=== PATIENT | male | born 1965 | race Caucasian/White ===

== ENCOUNTER → 2022-12-05 | Outpatient (CLI) | payer MEDICARE | END | disposition home or self-care (01) | LOC: LABWHC1 12:19 | PROVIDERS: ATTEND Psychiatry & Neurology Neurology | DX: Z01.812 Encounter for preprocedural laboratory examination (principal); R00.1 Bradycardia, unspecified | CPT/HCPCS: 36415; 93005 ==

== ENCOUNTER 2024-08-24 21:40 | Inpatient (IN) | payer MEDICARE ==
[2024-08-24] MEDS: SODIUM CHLORIDE 0.9% 1,000 ML IV ONE (22:26)
[2024-08-24 22:30] LABS: Glucose,Whole Blood 114 mg/dL (70-110)
[2024-08-24 22:45] LABS: Lactic Acid, Venous 1.4 mmol/L (0.7-2.0)
[2024-08-24 22:51] LABS: ALT 56 U/L (4-49); AST 188 U/L (17-59); Acetaminophen <10.0 ug/mL; African American GFR (CKD) 24 (>60 ml/min/1.73 sqM); Albumin 4.5 g/dL (3.5-5.0); Alkaline Phosphatase 103 U/L (38-126); Anion Gap 17 mmol/L; Blood Urea Nitrogen 35 mg/dL (9-20); Calcium 9.6 mg/dL (8.4-10.2); Carbon Dioxide 16 mmol/L (22-30); Chloride 102 mmol/L (98-107); Glucose 111 mg/dL (74-99); Non-African American GFR(CKD) 21 (>60 ml/min/1.73 sqM); Potassium 4.6 mmol/L (3.5-5.1); Salicylate <1.0 mg/dL; Sodium 135 mmol/L (137-145); Total Protein 6.9 g/dL (6.3-8.2)
--- NOTE | 2024-08-24 22:52 | CT ---
EXAM: CT Head Without Intravenous Contrast CLINICAL HISTORY: ITS.REASON CT Reason: AMS, poss fall TECHNIQUE: Axial computed tomography images of the head/brain without intravenous contrast. CTDI is 45.2 mGy and DLP is 1100 mGy-cm. This CT exam was performed using one or more of the following dose reduction techniques: automated exposure control, adjustment of the mA and/or kV according to patient size, and/or use of iterative reconstruction technique. COMPARISON: No relevant prior studies available. FINDINGS: No acute intracranial hemorrhage. No midline shift or mass effect. The territorial baeza-white matter differentiation is maintained throughout. The ventricles and sulci are commensurate with age. The visualized orbits appear grossly unremarkable. The calvarium is intact. The visualized paranasal sinuses and mastoid air cells are grossly clear. IMPRESSION: No acute intracranial hemorrhage, midline shift, or mass effect. EXAM: CT Cervical Spine Without Intravenous Contrast CLINICAL HISTORY: ITS.REASON CT Reason: AMS, poss fall TECHNIQUE: Axial computed tomography images of the cervical spine without intravenous contrast. CTDI is 13.3 mGy and DLP is 432.9 mGy-cm. This CT exam was performed using one or more of the following dose reduction techniques: automated exposure control, adjustment of the mA and/or kV according to patient size, and/or use of iterative reconstruction technique. COMPARISON: No relevant prior studies available. FINDINGS: The vertebral body heights are maintained. The craniocervical junction is intact. The atlanto-dens interval is maintained. The dens is intact. ACDF at C4-C7.. The anterior plate is well seated. No CT evidence of hardware complication. There is no spondylolisthesis. Multilevel cervical spondylosis and degenerative disc disease. Straightening of the cervical lordosis. IMPRESSION: 1. No acute fracture or subluxation of the cervical spine. 2. ACDF at C4-C7.. The anterior plate is well seated. No CT evidence of hardware complication.
--- NOTE | 2024-08-24 22:57 | XR ---
EXAM: XR Chest, 1 View CLINICAL HISTORY: ITS.REASON XR Reason: altered mental status, cough TECHNIQUE: Frontal view of the chest. COMPARISON: No relevant prior studies available. FINDINGS: Lungs: The lung bases are not included in the field of view. Pleural space: Unremarkable. No pneumothorax. Heart: Unremarkable. No cardiomegaly. Mediastinum: Unremarkable. Bones/joints: Unremarkable. Other findings: ACDF. IMPRESSION: No acute findings.
--- NOTE | 2024-08-24 23:07 | ED ---
General Adult HPI - General Chief complaint: Altered Mental Status Stated complaint: Stroke Time Seen by Provider: 08/24/24 21:54 Source: patient Mode of arrival: EMS Limitations: altered mental status - History of Present Illness Initial comments: Patient is a 58 y/o gentleman PMH methadone dependance 2/2 chronic pain presenting today for altered mental status. Hx provided by patient's family. Pt's last known well was 10 AM yesterday when, pt's last heard from him via text (she does not live with the pt). His states the pt had been texting her that he wasn't feeling well and had a cough, nausea and vomiting. Pt's became when she didn't hear from him today so asked a neighbor and her son to go check on the pt. When pt's son arrived he found the pt sitting in his recliner, confused, with a cut on his lip and "all of the glass in front of him smashed" like he had tried to get up and couldn't or had possibly fallen. Pt is normally AOx 4. No hx CVA. No hx alcohol abuse. Is not on blood thinners. Did spend a significant amount of time this weekend working outside-pt's family stating pt will continue to work outside in the heat all day without coming in to rest. - Related Data Home Medications Medication Instructions Recorded Confirmed Methadone [Dolophine] 10 mg PO Q4-6H 08/25/24 08/25/24 Allergies Allergy/AdvReac Type Severity Reaction Status Date / Time bupropion [From Wellbutrin] Allergy Unknown Verified 08/24/24 22:23 gabapentin Allergy Unknown Verified 08/24/24 22:23 Review of Systems ROS Statement: Those systems with pertinent positive or pertinent negative responses have been documented in the HPI. ROS Other: All systems not noted in ROS Statement are negative. Limitations: ROS unobtainable due to patients medical condition Past Medical History Past Psychological History: Unable to Obtain Smoking Status: Unknown if ever smoked Past Alcohol Use History: None Reported Past Drug Use History: None Reported General Exam - General Exam Comments Initial Comments: PE: CONSTITUTIONAL: No apparent distress, ill-appearing,nontoxic SKIN: Warm, dry, no jaundice, hives or petechiaem small abrasion to right lip EYES: Pupils are equally round, extraocular movements intact without nystagmus, clear conjunctiva, non-icteric sclera HENT: Normocephalic, atraumatic, no palpable hematomas, dry mucus membranes, oropharynx clear without exudates NECK: , Full range of motion, normal appearance, no midline spinal TTP PULMONARY: Clear to auscultation without wheezes, rhonchi, or rales, normal excursion, no accessory muscle use and no stridor CARDIOVASCULAR: Regular rate, rhythm, normal S1 and S2. No appreciated murmurs, rubs or gallops. Strong radial pulses with intact distal perfusion. No lower extremity edema GASTROINTESTINAL: Soft, active bowel sounds throughout, non-tender, non- distended, no palpable masses, no rebound or guarding. No hepatosplenomegaly MUSCULOSKELETAL: Extremities have no gross deformity, no edema, redness, or swelling. No calf swelling, no midline spinal tenderness palpation NEUROLOGIC:_a/o x1, able to identify , when she asks him who she is, when this examiner asks pt orienting questions pt does not answer any questions, star es blankly at examiner, GCS 14,confused mentation, pt does not speak to this examiner though looks at myself when he is addressed, appears confused, move's all 4 extremities spontaneously, no facial droop, EOM intact, exam is limited by pt's ability to cooperate with exam. Moves all extremities x 4 without motor or sensory deficit PSYCHIATRIC: Unable to assess Limitations: altered mental status Course Vital Signs 08/24/24 08/24/24 08/25/24 21:42 23:07 00:00 Temperature 97.9 F Pulse Rate 85 79 85 Respiratory 18 18 16 Rate Blood Pressure 149/90 135/80 165/90 O2 Sat by Pulse 95 97 95 Oximetry 08/25/24 08/25/24 08/25/24 01:00 02:00 05:09 Temperature Pulse Rate 69 81 72 Respiratory 18 18 16 Rate Blood Pressure 132/81 128/79 148/78 O2 Sat by Pulse 96 97 96 Oximetry 08/25/24 08/25/24 08/25/24 06:00 08:18 08:22 Temperature Pulse Rate 70 64 Respiratory 16 18 Rate Blood Pressure 133/71 O2 Sat by Pulse 96 97 Oximetry 08/25/24 09:36 Temperature Pulse Rate 68 Respiratory 20 Rate Blood Pressure 132/77 O2 Sat by Pulse 98 Oximetry - Reevaluation(s) Reevaluation #1: Notified that patient's creatinine kinase was 24,000, patient has received 1 L IV fluids, ordered 130 cc an hour maintenance fluids, currently pending CMP 08/24/24 23:46 EKG Findings - EKG Comments: EKG Findings:: Sinus rhythm, rate 89 bpm intervals within acceptable limits, no significant ST elevations or depressions no arrhythmia Medical Decision Making - Medical Decision Making Was pt. sent in by a medical professional or institution (, PA, OIL WELL PU[employer]ER, urgent care, hospital, or [facility]...) When possible be specific @ -No Did you speak to anyone other than the patient for history (EMS, parent, family, police, friend...)? 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 Why? @ -I reviewed nursing and triage notes Were old charts reviewed (outside hosp., previous admission, EMS record, old EKG, old radiological studies, urgent care reports/EKG's, [facility] records)? Report findings @ -Medical records reviewed Differential Diagnosis (chest pain, altered mental status, abdominal pain women, abdominal pain men, vaginal bleeding, weakness, fever, dyspnea, syncope, headache, dizziness, GI bleed, back pain, seizure, CVA, palpatations, mental health, musculoskeletal)? @Differential Altered Mental Status: Hypoglycemia, DKA, hypercapnia, ETOH, overdose, CO poisoning, trauma, myxedema coma, HTN encephalopathy, infection, encephalitis, psychosis, intercranial hemorrhage, hepatic encephalopathy, meningitis, CVA, this is not meant to be an all-inclusive list EKG interpreted by me (3pts min.). @ -As above X-rays interpreted by me (1pt min.). @ Personally reviewed chest XR, I see no consolidations CT interpreted by me (1pt min.). @ -Personally reviewed CT brain I see no evidence of hemorrhage or mass effect reads CT C-spine I see no evidence of fracture or malalignment U/S interpreted by me (1pt. min.). @ -None done What testing was considered but not performed or refused? (CT, X-rays, U/S, labs)? Why? 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 Why? @ -None Did you discuss the management of the patient with other professionals (professionals i.e. , PA, OIL WELL PU[employer]ER, lab, RT, psych nurse, social professionals, welt stitch cleaner, teacher, head correction officer, case management rn)? Give summary @ -No Was smoking cessation discussed for >3mins.? @ -No Was critical care preformed (if so, how long)? @Yes 35 minutes Were there social determinants of health that impacted care today? How? (Homelessness, low income, unemployed, alcoholism, drug addiction, transportation, low edu. Level, literacy, decrease access to med. care, [place] [facility], rehab)? @ -No Was there de-escalation of care discussed even if they declined (Discuss DNR or withdrawal of care, Hospice)? @ -No What co-morbidities impacted this encounter? (DM, HTN, Smoking, COPD, CAD, Cancer, CVA, ARF, Chemo, Hep., AIDS, mental health diagnosis, sleep apnea, morbid obesity)? @ -None Was patient admitted / discharged? Hospital course, mention meds given and route, prescriptions, significant lab abnormalities, going to OR and other pertinent info. @ -Admission- Pt is a 58 y/o gentleman presenting for AMS. Arrives via ambulance. On my assessment pt is sitting in bed, staring blankly across the room. He does turn towards me when I say his name however does not answer any questions. He moves all 4 extremities spontaneously. Pt's family arrives at bedside and when his asks him to identify her he states "that's my Kelsey" and is also able to identify his son, but does not answer questions for this examiner. He seems to have difficulty following commands but then does attempt to get up out of bed to greet his family. Pt redirected to bed. Does not appear to have any focal neuro deficits. Only sign of trauma is small abrasion to right lip, otherwise,head atraumatic, no midline spinal TTP, extremities are nontender and atraumatic. Stroke alert was considered however given patient's last known well was greater than 24 hours prior to arrival, patient is outside the window for any type of intervention. Will obtain CT brain and C-spine as well out of concern for possible fall. Patient has a slightly dry mucous membranes. Otherwise physical exam is largely unremarkable. Discussed with patient and family plan for broad workup to assess for cause of altered mental status, to include CT brain, chest x-ray, comprehensive labs such as CMP, CBC, troponin, TSH, ammonia, salicylate and acetaminophen levels, UDS, alcohol, CK, urinalysis. Patient will be given 1 L IV fluids. Patient's family notes concern that patient is uncomfortable secondary to chronic pain as he has not been given his methadone. They are unsure of his dose of methadone and were unable to bring it with them so patient's pain will be controlled with Dilaudid until methadone can be confirmed with pharmacy in the morning. Labs significant for white blood cell count 27.76, due to elevated white blood cell count and patient's noting he seemed recently ill, will begin on broad-spectrum antibiotics, Rocephin azithromycin, additionally blood culture and lactic already ordered. Labs otherwise significant for a CK of 24,102, GFR of 21, previously on 04/17/2022 was 96.5, no known history of CKD, creatinine 3.19, AST/ALT 188/56, troponin 0.163, no elevations or depressions on EKG suspect this is secondary to type II NV. Additionally her IV fluid and maintenance fluids were ordered as patient appears to be in rhabdomyolysis. Bladder scan was obtained and showed 75 cc urine within the bladder. After administration of fluid bolus and maintenance fluids repeat bladder scan showed approximately 130 cc within the bladder. A urine sample was able to be obtained and showed light yellow urine with a large amount of blood again reflective of rhabdomyolysis, negative nitrates leukocyte esterase. On reassessment patient is now more conversant and responding to examiners questions. Stated he still does not remember what caused him to come to the ER last night. Case was discussed with Dr. Devlin, [facility] who kindly accepted patient for admission for rhabdomyolysis. Nephrology consultation placed. Undiagnosed new problem with uncertain prognosis? @ -No Drug Therapy requiring intensive monitoring for toxicity (Heparin, Nitro, Insulin, Cardizem)? @ -No Were any procedures done? @ -No Diagnosis/symptom? @Rhabdomyolysis, ZAK, acute metabolic encephalopathy, elevated troponin Acute, or Chronic, or Acute on Chronic? @Acute Uncomplicated (without systemic symptoms) or Complicated (systemic symptoms)? @Complicated Side effects of treatment? @ -No Exacerbation, Progression, or Severe Exacerbation? @ -No Poses a threat to life or bodily function? How? (Chest pain, USA, NV, pneumonia, PE, COPD, DKA, ARF, appy, cholecystitis, CVA, Diverticulitis, Homicidal, Suicidal, threat to staff... and all critical care pts) @Yes - Lab Data Result diagrams: 08/24/24 21:48 08/24/24 21:48 Lab Results 08/24/24 08/24/24 08/24/24 Range/Units 21:48 21:48 21:48 WBC 27.76 H (4.50-10.00) 10*3/uL RBC 4.86 (4.40-5.60) 10*6/uL Hgb 15.2 (13.0-17.0) g/dL Hct 42.9 (39.6-50.0) % MCV 88.3 (80.0-97.0) fL MCH 31.3 (27.0-32.0) pg MCHC 35.4 (32.0-37.0) g/dL Plt Count 285 (140-440) 10*3/uL MPV 9.1 L (9.5-12.2) fL Immature Gran % (Auto) 0.7 % Neutrophils % 89.9 % Lymphocytes % 2.7 % Monocytes % 6.5 % Eosinophils % 0.0 % Basophils % 0.2 % Immature Gran # 0.20 H (0.00-0.04) 10*3/uL Neutrophils # 24.95 H (1.80-7.70) 10*3/uL Lymphocytes # 0.74 L (0.90-5.00) 10*3/uL Monocytes # 1.81 H (0.20-1.00) 10*3/uL Eosinophils # 0.01 L (0.04-0.35) 10*3/uL Basophils # 0.05 (0.00-0.10) 10*3/uL PT 10.7 (10.0-12.5) sec INR 1.0 (<1.2) APTT 22.2 (22.0-30.0) sec Sodium 135 L (137-145) mmol/L Potassium 4.6 (3.5-5.1) mmol/L Chloride 102 (98-107) mmol/L Carbon Dioxide 16 L (22-30) mmol/L Anion Gap 17 mmol/L BUN 35 H (9-20) mg/dL Creatinine 3.19 H (0.66-1.25) mg/dL Est GFR (CKD-EPI)AfAm 24 (>60 ml/min/1.73 sqM) Est GFR (CKD-EPI)NonAf 21 (>60 ml/min/1.73 sqM) Glucose 111 H (74-99) mg/dL POC Glucose (mg/dL) (70-110) mg/dL POC Glu Security Guard Supervisor ID Plasma Lactic Acid Will (0.7-2.0) mmol/L Calcium 9.6 (8.4-10.2) mg/dL Total Bilirubin 0.5 (0.2-1.3) mg/dL AST 188 H (17-59) U/L ALT 56 H (4-49) U/L Alkaline Phosphatase 103 (38-126) U/L Ammonia (<30) umol/L Creatine Kinase 53485 H* (55-170) U/L Troponin I (0.000-0.034) ng/mL Total Protein 6.9 (6.3-8.2) g/dL Albumin 4.5 (3.5-5.0) g/dL Salicylates <1.0 mg/dL Acetaminophen <10.0 ug/mL Serum Alcohol <10 mg/dL 08/24/24 08/24/24 08/24/24 Range/Units 21:48 21:48 22:28 WBC (4.50-10.00) 10*3/uL RBC (4.40-5.60) 10*6/uL Hgb (13.0-17.0) g/dL Hct (39.6-50.0) % MCV (80.0-97.0) fL MCH (27.0-32.0) pg MCHC (32.0-37.0) g/dL Plt Count (140-440) 10*3/uL MPV (9.5-12.2) fL Immature Gran % (Auto) % Neutrophils % % Lymphocytes % % Monocytes % % Eosinophils % % Basophils % % Immature Gran # (0.00-0.04) 10*3/uL Neutrophils # (1.80-7.70) 10*3/uL Lymphocytes # (0.90-5.00) 10*3/uL Monocytes # (0.20-1.00) 10*3/uL Eosinophils # (0.04-0.35) 10*3/uL Basophils # (0.00-0.10) 10*3/uL PT (10.0-12.5) sec INR (<1.2) APTT (22.0-30.0) sec Sodium (137-145) mmol/L Potassium (3.5-5.1) mmol/L Chloride (98-107) mmol/L Carbon Dioxide (22-30) mmol/L Anion Gap mmol/L BUN (9-20) mg/dL Creatinine (0.66-1.25) mg/dL Est GFR (CKD-EPI)AfAm (>60 ml/min/1.73 sqM) Est GFR (CKD-EPI)NonAf (>60 ml/min/1.73 sqM) Glucose (74-99) mg/dL POC Glucose (mg/dL) 114 H (70-110) mg/dL POC Glu Security Guard Supervisor ID Sheldon Acosta Plasma Lactic Acid Will 1.4 (0.7-2.0) mmol/L Calcium (8.4-10.2) mg/dL Total Bilirubin (0.2-1.3) mg/dL AST (17-59) U/L ALT (4-49) U/L Alkaline Phosphatase (38-126) U/L Ammonia <9 (<30) umol/L Creatine Kinase (55-170) U/L Troponin I 0.163 H* (0.000-0.034) ng/mL Total Protein (6.3-8.2) g/dL Albumin (3.5-5.0) g/dL Salicylates mg/dL Acetaminophen ug/mL Serum Alcohol mg/dL Disposition Clinical Impression: Rhabdomyolysis, ZAK (acute kidney injury), Acute metabolic encephalopathy Disposition: ADMITTED IP TO THIS HOSP Condition: Stable
[2024-08-24] MEDS: ONDANSETRON 4 MG/2 ML VIAL IVP STA (23:09)
[2024-08-24] MEDS: MORPHINE SULFATE 4 MG/ML SYRINGE IVP STA (23:09)
[2024-08-24 23:21] LABS: INR 1.0 (<1.2); Partial Thromboplastin Time 22.2 sec (22.0-30.0); Prothrombin Time 10.7 sec (10.0-12.5)
[2024-08-24 23:22] LABS: Basophils # (A) 0.05 10*3/uL (0.00-0.10); Basophils % (A) 0.2 %; Eosinophils # (A) 0.01 10*3/uL (0.04-0.35); Eosinophils % (A) 0.0 %; HCT 42.9 % (39.6-50.0); HGB 15.2 g/dL (13.0-17.0); Lymphocytes # (A) 0.74 10*3/uL (0.90-5.00); Lymphocytes % (A) 2.7 %; MCH 31.3 pg (27.0-32.0); MCHC 35.4 g/dL (32.0-37.0); MCV 88.3 fL (80.0-97.0); Monocytes # (A) 1.81 10*3/uL (0.20-1.00); Monocytes % (A) 6.5 %; Neutrophils # (A) 24.95 10*3/uL (1.80-7.70); Neutrophils % (A) 89.9 %; Platelet Count 285 10*3/uL (140-440); RBC 4.86 10*6/uL (4.40-5.60); RDW 13.0 % (11.5-14.5); WBC 27.76 10*3/uL (4.50-10.00)
[2024-08-24 23:45] LABS: Creatine Kinase 24102 U/L (55-170)
[2024-08-24] MEDS: AZITHROMYCIN 500 MG in SODIUM CHLORIDE 0.9% 250 ML IVPB STA (23:46)
[2024-08-25] MEDS: SODIUM CHLORIDE 0.9% 1,000 ML IV ONE (00:15)
[2024-08-25] MEDS ORDERED: CALCIUM CARBONATE 500 MG CHEWABLE PO PRN (00:22)
[2024-08-25] MEDS ORDERED: MAG HYDROX/AL HYDROX/SIMETH 30 ML CUP PO PRN (00:22)
[2024-08-25] MEDS ORDERED: ONDANSETRON 4 MG/2 ML VIAL IVP PRN (00:22)
[2024-08-25] MEDS ORDERED: NALOXONE 0.4 MG/ML 1 ML VIAL IV PRN (00:22)
[2024-08-25] MEDS ORDERED: ALPRAZolam 0.25 MG TAB PO PRN (00:22)
[2024-08-25] MEDS: SODIUM CHLORIDE 0.9% 1,000 ML IV SCH (01:06)
[2024-08-25] MEDS: HYDROmorphone 0.5 MG/0.5 ML SYRINGE IVP PRN (02:19)
[2024-08-25 05:05] LABS: RSV Not Detected (Not Detectd)
[2024-08-25 07:13] LABS: Amorphous Sediment,Urine Rare /hpf; Bacteria,Urine Occasional /hpf; Bilirubin,Urine Negative (Negative); Blood,Urine Large (Negative); Budding Yeast,Urine Occasional /hpf; Calcium Oxalate Crystals,Urine Few /hpf; Color,Urine Light Yellow; Glucose,Urine (UA) 1+ (Negative); Hyaline Casts,Urine 15 /lpf (0-2); Ketones,Urine Negative (Negative); Leukocyte Esterase,Urine Negative (Negative); Mucus,Urine Rare /hpf; Nitrite,Urine Negative (Negative); PH, Urine 6.0 (5.0-8.0); Protein,Urine 2+ (Negative); RBC,Urine 3 /hpf (0-5); Specific Gravity,Urine 1.012 (1.001-1.035); Squamous Epithelial Cell,Urine 1 /hpf (0-4); Urobilinogen,Urine <2.0 mg/dL (<2.0); WBC,Urine 10 /hpf (0-5)
[2024-08-25 07:15] LABS: Barbiturate Screen,Urine Not Detected (NotDetected); Benzodiazepines Screen,Urine Detected (NotDetected); Opiate Screen,Urine Detected (NotDetected); Oxycodone Screen, Urine Not Detected (NotDetected); Phencyclidine Screen,Urine Not Detected (NotDetected); Tricyclic Antidepressant,Urine Not Detected (NotDetected); Urn Cannabinoid Scrn Detected (NotDetected)
[2024-08-25] MEDS: ENOXAPARIN 30 MG/0.3 ML SYRINGE SQ SCH (08:19)
[2024-08-25] MEDS: HYDROmorphone 1 MG/ML 1 ML SYRINGE IVP PRN (09:31)
[2024-08-25] MEDS: FAMOTIDINE 20 MG TAB PO SCH (09:31)
[2024-08-25 12:58] LABS: African American GFR (CKD) 18 (>60 ml/min/1.73 sqM); Anion Gap 14 mmol/L; Blood Urea Nitrogen 41 mg/dL (9-20); Calcium 8.4 mg/dL (8.4-10.2); Carbon Dioxide 13 mmol/L (22-30); Chloride 109 mmol/L (98-107); Glucose 91 mg/dL (74-99); Non-African American GFR(CKD) 15 (>60 ml/min/1.73 sqM); Potassium 4.7 mmol/L (3.5-5.1); Sodium 136 mmol/L (137-145)
--- NOTE | 2024-08-25 13:17 | P.NPCON ---
History of Present Illness - Reason for Consult Consult date: 08/25/24 acute renal failure - History of Present Illness Mr. Bryant is a 58-year-old male consulted for ZAK. He has a past medical history of methadone dependence secondary to chronic pain who was admitted for altered mental status. at bedside said that he has been has been confused for the past 2 days but has improved since admission. Patient complained of a possible chest infection since Thursday, experiencing dry heaves and cough. He took previously prescribed antibiotics, thinks it was Cipro, for what he thought was a chest infection. His son found him naked and confused on Thursday night around 7 or 8 PM in a chair, although they believe he fell on the floor. The glass table and glass crystals were found broken near him. Unknown downtime. Today he has no complaints of a his suspected chest infection. He denies abdominal pain, chest pain, shortness of breath. He does not remember if he has been urinating, drinking or eating. He complains of lower extremity muscle weakness and pain. He also has been having nausea. On admission his creatinine was 3.19. Previous Creatinine 0.9 on 04/17/22. Cre atine kinase was 24,102 on admission today it is 24,825. UA has large amount of blood, 2+ protein, hyaline casts. Denies NSAID use. No history of blood thinners. No history of malignancy. No family history or prior history of kidney disorders. No hypotension noted. No vomitting or diarrhea. Patient voided this morning. Past Medical History Past Psychological History: Unable to Obtain Smoking Status: Unknown if ever smoked Past Alcohol Use History: None Reported Past Drug Use History: None Reported Medications and Allergies Home Medications Medication Instructions Recorded Confirmed Type Methadone [Dolophine] 10 mg PO Q4-6H 08/25/24 08/25/24 History Allergies Allergy/AdvReac Type Severity Reaction Status Date / Time bupropion [From Wellbutrin] Allergy Unknown Verified 08/24/24 22:23 gabapentin Allergy Unknown Verified 08/24/24 22:23 Physical Exam Vitals: Vital Signs Temp Pulse Resp BP Pulse Ox 08/25/24 09:36 68 20 132/77 98 08/25/24 08:22 64 18 08/25/24 08:18 97 08/25/24 06:00 70 16 133/71 96 08/25/24 05:09 72 16 148/78 96 08/25/24 02:00 81 18 128/79 97 08/25/24 01:00 69 18 132/81 96 08/25/24 00:00 85 16 165/90 95 08/24/24 23:07 79 18 135/80 97 08/24/24 21:42 97.9 F 85 18 149/90 95 Intake and Output 08/24/24 08/25/24 08/25/24 22:59 06:59 14:59 Other: Weight 86.183 kg Vital signs stable General: No acute distress. HEENT: Head exam is unremarkable. LUNGS: No audible rhonchi or wheezes. HEART: Normal S1 and S2 heart sounds ABDOMEN: Nontender.. EXTREMITITES: no edema. Some excoriations noted bilaterally in lower extremities. Results - Lab Results Most recent lab results Calcium 9.6 mg/dL (8.4-10.2) 08/24/24 21:48 08/26/24 06:36 08/26/24 06:36 Assessment and Plan Assessment: 1. Acute kidney injury secondary to rhabdomyolysis [place] [address], [place] [address]. Creatinine on admission 3.19. UA with 2+ protein, large blood, and hyaline casts. Check renal US if renal function does not improve with hydration. 2. Altered mentation. Drug screen positive for opiates, methadone, benzodiazepines [not prescribed], and marijuana. 3. High anion gap metabolic acidosis secondary to acute kidney injury. 4. Rhabdomyolysis with UA showing 3 RBCs and large blood, which is consistent with diagnosis. Plan: Continue IV fluids Check BMP Stat Start bicarbonate drip based on labs Avoid nephrotoxins Monitor I's and O's Repeat labs in AM Thank you for the consultation, we will continue to monitor him throughout his hospital stay. Salvador Ruiz MD Internal medicine, PGY 1 Nephrology service Agree with resident's findings, assessment and plan. Patient is seen and examined.
--- NOTE | 2024-08-25 14:35 | P.HPIM ---
History of Present Illness H&P Date: 08/25/24 Chief Complaint: Altered mental status History of present illness; 58-year-old male with history of substance abuse currently on methadone presents with altered mental status. Patient is a poor historian, most of history obtained from ER notes and ER nurse. Reported that patient was working outside for the last couple of days and thought to have fallen at home, when he was found by EMS there was a shelf that was broken next to him. Patient reports he has no memory of the last 2 days, only remembers working outside a few days ago but outside of that has very little memory of anything else. Labs: WBC 27.76, hemoglobin 15.2, platelets 285, neutrophil 24.95, PT 10.7, INR 1, sodium 135, potassium 4.6, bicarb 16, BUN 35, creatinine 3.19, glucose 111, AST 188, ALT 56, creatinine kinase 24,102, troponin 0.163. UA significant for 2+ protein, 1+ glucose, large amount of blood, 10 WBC, few calcium oxalate crystal, 15 hyaline casts, negative urine leukocyte esterase. Imaging: - EKG done in the ER showed heart rate of 89 bpm, sinus rhythm, and QTc 397. - ER CXR: No acute cardiopulmonary process - ER CT Head: No acute intracranial process - ER CT cervical spine: No acute fracture or subluxation of the cervical spine, ACDF at C4-C7 REVIEW OF SYSTEMS: As stated above in HPI. The rest of the 14-point review of systems is negative. PHYSICAL EXAMINATION: GENERAL: The patient is alert and oriented x2 he is able to state his name date of but believes it is the year 2019, not in any acute distress. Well developed, well nourished. HEENT: Pupils are round and equally reacting to light. EOMI. No scleral icterus. No conjunctival pallor. Normocephalic, atraumatic. CARDIOVASCULAR: S1 and S2 present. No murmurs, rubs, or gallops. PULMONARY: Chest is clear to auscultation b/l, no wheezing or crackles. ABDOMEN: Soft, nontender, nondistended, normoactive bowel sounds. No palpable organomegaly. MUSCULOSKELETAL: No joint swelling or deformity. EXTREMITIES: No cyanosis, clubbing, or pedal edema. NEUROLOGICAL: Gross neurological examination did not reveal any focal deficits. SKIN: No rashes. Assessment and Plan #Rhabdomyolysis #ZAK likely secondary to rhabdo and dehydration #AMS - CK slightly elevated from admission - Continue NS at 130 cc/h - Nephrology consulted, appreciate further recommendations - Avoid nephrotoxic agents - Discontinue Lovenox, start heparin 5000 SQ 3 times daily - Per nephrology will consider bicarb drip if it continues to be low and follow ing BMP - Monitor BMP - After speaking with , this is far from the patient's baseline mentation we will continue to monitor likely secondary to ZAK and dehydration #Elevated troponin: - Likely secondary to ZAK - Repeat troponin pending - Continue to monitor #Leukocytosis: Potentially reactive - Blood cultures drawn - Given 1 dose of Rocephin and Zithromax in the ER - No fevers since admission - No plans for continued antibiotics, will continue to monitor F: NS 130 cc/h E: None N: Renal diet DVT ppx: Heparin 5000 SQ 3 times daily GI ppx: Calcium carbonate CODE STATUS: Full code Dispo: Pending medical course Moni Palacio MD PGY-2 FM Dictation was produced using [employer] dictation software. please excuse any grammatical, word or spelling errors. Past Medical History Past Psychological History: Unable to Obtain Smoking Status: Unknown if ever smoked Past Alcohol Use History: None Reported Past Drug Use History: None Reported Medications and Allergies Home Medications Medication Instructions Recorded Confirmed Type Methadone [Dolophine] 10 mg PO Q4-6H 08/25/24 08/25/24 History Allergies Allergy/AdvReac Type Severity Reaction Status Date / Time bupropion [From Wellbutrin] Allergy Unknown Verified 08/24/24 22:23 gabapentin Allergy Unknown Verified 08/24/24 22:23 Physical Exam Vitals: Vital Signs Temp Pulse Resp BP Pulse Ox 08/25/24 06:00 70 16 133/71 96 08/25/24 05:09 72 16 148/78 96 08/25/24 02:00 81 18 128/79 97 08/25/24 01:00 69 18 132/81 96 08/25/24 00:00 85 16 165/90 95 08/24/24 23:07 79 18 135/80 97 08/24/24 21:42 97.9 F 85 18 149/90 95 Intake and Output 08/24/24 08/25/24 08/25/24 22:59 06:59 14:59 Other: Weight 86.183 kg Results CBC & Chem 7: 08/24/24 21:48 08/25/24 07:41 Labs: Abnormal Lab Results - Last 24 Hours (Table) 08/24/24 08/24/24 08/24/24 Range/Units 21:48 21:48 21:48 WBC 27.76 H (4.50-10.00) 10*3/uL MPV 9.1 L (9.5-12.2) fL Immature Gran # 0.20 H (0.00-0.04) 10*3/uL Neutrophils # 24.95 H (1.80-7.70) 10*3/uL Lymphocytes # 0.74 L (0.90-5.00) 10*3/uL Monocytes # 1.81 H (0.20-1.00) 10*3/uL Eosinophils # 0.01 L (0.04-0.35) 10*3/uL Sodium 135 L (137-145) mmol/L Carbon Dioxide 16 L (22-30) mmol/L BUN 35 H (9-20) mg/dL Creatinine 3.19 H (0.66-1.25) mg/dL Glucose 111 H (74-99) mg/dL POC Glucose (mg/dL) (70-110) mg/dL AST 188 H (17-59) U/L ALT 56 H (4-49) U/L Creatine Kinase 08043 H* (55-170) U/L Troponin I 0.163 H* (0.000-0.034) ng/mL Urine Protein (Negative) Urine Glucose (UA) (Negative) Urine Blood (Negative) Urine WBC (0-5) /hpf Calcium Oxalate Crystal (None) /hpf Amorphous Sediment (None) /hpf Urine Bacteria (None) /hpf Hyaline Casts (0-2) /lpf Urine Mucus (None) /hpf Urine Yeast (Budding) (None) /hpf Urine Opiates Screen (NotDetected) Urine Methadone Screen (NotDetected) U Benzodiazepines Scrn (NotDetected) U Marijuana (THC) Screen (NotDetected) 08/24/24 08/25/24 Range/Units 22:28 06:27 WBC (4.50-10.00) 10*3/uL MPV (9.5-12.2) fL Immature Gran # (0.00-0.04) 10*3/uL Neutrophils # (1.80-7.70) 10*3/uL Lymphocytes # (0.90-5.00) 10*3/uL Monocytes # (0.20-1.00) 10*3/uL Eosinophils # (0.04-0.35) 10*3/uL Sodium (137-145) mmol/L Carbon Dioxide (22-30) mmol/L BUN (9-20) mg/dL Creatinine (0.66-1.25) mg/dL Glucose (74-99) mg/dL POC Glucose (mg/dL) 114 H (70-110) mg/dL AST (17-59) U/L ALT (4-49) U/L Creatine Kinase (55-170) U/L Troponin I (0.000-0.034) ng/mL Urine Protein 2+ H (Negative) Urine Glucose (UA) 1+ H (Negative) Urine Blood Large H (Negative) Urine WBC 10 H (0-5) /hpf Calcium Oxalate Crystal Few H (None) /hpf Amorphous Sediment Rare H (None) /hpf Urine Bacteria Occasional H (None) /hpf Hyaline Casts 15 H (0-2) /lpf Urine Mucus Rare H (None) /hpf Urine Yeast (Budding) Occasional H (None) /hpf Urine Opiates Screen Detected H (NotDetected) Urine Methadone Screen Detected H (NotDetected) U Benzodiazepines Scrn Detected H (NotDetected) U Marijuana (THC) Screen Detected H (NotDetected)
[2024-08-25] MEDS: HEPARIN SODIUM,PORCINE 5,000 UNIT/ML 1 ML VIAL SQ SCH (16:55)
[2024-08-25] MEDS: DEXTROSE 5% IN WATER 1,000 ML with SODIUM BICARB (1 MEQ/ML) 150 ML IV SCH (20:12)
[2024-08-25] MEDS: NICOTINE 14MG/24HR PATCH TRANSDERM SCH (21:54)
[2024-08-26 07:28] LABS: Basophils # (A) 0.05 10*3/uL (0.00-0.10); Basophils % (A) 0.4 %; Eosinophils # (A) 0.03 10*3/uL (0.04-0.35); Eosinophils % (A) 0.2 %; HCT 36.5 % (39.6-50.0); HGB 12.6 g/dL (13.0-17.0); Lymphocytes # (A) 1.43 10*3/uL (0.90-5.00); Lymphocytes % (A) 10.6 %; MCH 31.0 pg (27.0-32.0); MCHC 34.5 g/dL (32.0-37.0); MCV 89.7 fL (80.0-97.0); Monocytes # (A) 1.05 10*3/uL (0.20-1.00); Monocytes % (A) 7.8 %; Neutrophils # (A) 10.85 10*3/uL (1.80-7.70); Neutrophils % (A) 80.7 %; Platelet Count 194 10*3/uL (140-440); RBC 4.07 10*6/uL (4.40-5.60); RDW 13.2 % (11.5-14.5); WBC 13.45 10*3/uL (4.50-10.00)
[2024-08-26 07:48] LABS: ALT 74 U/L (4-49); AST 181 U/L (17-59); African American GFR (CKD) 14 (>60 ml/min/1.73 sqM); Albumin 3.0 g/dL (3.5-5.0); Alkaline Phosphatase 74 U/L (38-126); Anion Gap 9 mmol/L; Blood Urea Nitrogen 50 mg/dL (9-20); Calcium 8.1 mg/dL (8.4-10.2); Carbon Dioxide 19 mmol/L (22-30); Chloride 108 mmol/L (98-107); Glucose 92 mg/dL (74-99); Non-African American GFR(CKD) 12 (>60 ml/min/1.73 sqM); Potassium 4.1 mmol/L (3.5-5.1); Sodium 136 mmol/L (137-145); Total Protein 5.2 g/dL (6.3-8.2)
--- NOTE | 2024-08-26 11:01 | US ---
EXAMINATION TYPE: US kidneys/renal and bladder DATE OF EXAM: 08/26/2024 COMPARISON: NONE CLINICAL INDICATION: Male, 58 years old with history of zak; ZAK TECHNIQUE: Grayscale imaging of the bilateral kidneys and urinary bladder: FINDINGS: EXAM MEASUREMENTS: Right Kidney: 12 x 5.4 x 4.7 cm Left Kidney: 11.6 x 6.1 x 4.9 cm Right Kidney: No hydronephrosis or masses seen Left Kidney: No hydronephrosis or masses seen Bladder: Not full There is no evidence for hydronephrosis at this point in time. No nephrolithiasis is seen. No tamara s are identified. The urinary bladder is anechoic. IMPRESSION: No evidence for acute process. [facility], , 08/26/2024 10:59 AM
[2024-08-26] MEDS: DEXTROSE 5% IN WATER 1,000 ML with SODIUM BICARB (1 MEQ/ML) 150 ML IV SCH (11:11)
--- NOTE | 2024-08-26 14:27 | P.PN ---
Subjective History of present illness; 58-year-old male with history of substance abuse currently on methadone presents with altered mental status. Patient is a poor historian, most of history obtained from ER notes and ER nurse. Reported that patient was working outside for the last couple of days and thought to have fallen at home, when he was found by EMS there was a shelf that was broken next to him. Patient reports he has no memory of the last 2 days, only remembers working outside a few days ago but outside of that has very little memory of an ything else. Subjective: 08/26/24: Patient seen at bedside. No significant overnight events. Patient is aware of his name date of and location, still believes the year is 2005. Otherwise no other complaints at this time. States he is feeling better than yesterday. Pertinent positives and negatives discussed above, a complete review of systems was preformed and all the other sytems were negative. Vitals Signs Reveiwed. General: non toxic, no distress, appears at stated age, normal weight Derm: no unusual rashes/lesions, warm Head: atraumatic, normocephalic, symmetric Eyes: EOMI, no lid lag, anicteric sclera, pupils equal round reactive to light ENT: Nose and ears atraumatic Neck: No cervical lymphadenopathy, trachea midline, supple Mouth: no lip lesion, mucus membranes moist Cardiovascular: S1S2 reg, no murmur, positive dorsalis pedis pulse bilateral, no edema Lungs: Decreased air entry bilaterally, no rhonchi, no rales, no accessory muscle use Abdominal: soft, nontender to palpation, no guarding Ext: muscle strength 5 out of 5 in all 4 extremities grossly, no gross muscle atrophy, no contractures, Neuro: CN II-XI grossly intact, no gross focal neuro deficits Psych: Patient is improved from yesterday, is able to understand where he is his name and his date of , still believes the year is 2005. Data Reveiwed Today: Patient Labs: WBC 13.45, hemoglobin 12.6, platelets 194, neutrophil 10.5, sodium 136, potassium 4.1, bicarb 19, BUN 50, creatinine 4.94, calcium 8.1, AST 181, ALT 74, CK20 2911, troponin 0.074. Imaging: Abdomen/bladder ultrasound significant for no evidence for acute process, no hydronephrosis or masses seen in the right or left kidney, bladder not full Assessment and Plan #Rhabdomyolysis #ZAK likely secondary to rhabdo and dehydration #AMS -CK started to trend down, creatinine continues to increase, continue to monitor - Likely in the oligoanuric stage of ATN, will continue to monitor - Strict I's and O's - Abdomen/bladder ultrasound showed no evidence for hydronephrosis and bladder scan showed no evidence of retention - Continue NS at 130 cc/h - Nephrology consulted, appreciate further recommendations - Avoid nephrotoxic agents - Per nephrology will consider bicarb drip if it continues to be low and following BMP - Monitor BMP -Patient's mentation slightly better, still believes the year is 2005 which is the only abnormality in terms of mentation #Elevated troponin: - Likely secondary to ZAK - Repeat troponin pending - Continue to monitor #Leukocytosis: Potentially reactive - White count significantly dropped, further evidence this is likely reactive and not necessarily sign of an infection -Preliminary has been negative for blood culture - Given 1 dose of Rocephin and Zithromax in the ER - No fevers since admission - No plans for continued antibiotics, will continue to monitor F: NS 130 cc/h E: None N: Renal diet DVT ppx: Heparin 5000 SQ 3 times daily GI ppx: Calcium carbonate CODE STATUS: Full code Dispo: Pending medical course Moni Palacio MD PGY-2 FM Dictation was produced using [employer] dictation software. please excuse any grammatical, word or spelling errors. Anticipated discharge place: To home Anticipated discharge time: Pending clinical course Objective - Vital Signs Vital signs: Vital Signs Temp 98.2 F 08/26/24 08:06 Pulse 61 08/26/24 11:50 Resp 15 08/26/24 11:50 BP 153/80 08/26/24 11:50 Pulse Ox 97 08/26/24 11:50 FiO2 Intake & Output 08/25/24 08/26/24 08/26/24 18:59 06:59 18:59 Intake Total 340 Output Total 600 Balance -260 Weight 86.183 kg 81.6 kg Intake: Oral 340 Output: Urine 600 Other: Voiding Method Toilet Toilet Urinal Urinal # Voids 2 1 # Bowel Movements 1 - Labs CBC & Chem 7: 08/26/24 06:36 07/11/25 06:36 Labs: Abnormal Lab Results - Last 24 Hours (Table) 08/25/24 08/26/24 08/26/24 Range/Units 07:41 06:36 06:36 WBC 13.45 H (4.50-10.00) 10*3/uL RBC 4.07 L (4.40-5.60) 10*6/uL Hgb 12.6 L (13.0-17.0) g/dL Hct 36.5 L (39.6-50.0) % MPV 9.2 L (9.5-12.2) fL Neutrophils # 10.85 H (1.80-7.70) 10*3/uL Monocytes # 1.05 H (0.20-1.00) 10*3/uL Eosinophils # 0.03 L (0.04-0.35) 10*3/uL Sodium 136 L 136 L (137-145) mmol/L Chloride 109 H 108 H (98-107) mmol/L Carbon Dioxide 13 L 19 L (22-30) mmol/L BUN 41 H 50 H (9-20) mg/dL Creatinine 4.09 H 4.94 H (0.66-1.25) mg/dL Calcium 8.1 L (8.4-10.2) mg/dL AST 181 H (17-59) U/L ALT 74 H (4-49) U/L Creatine Kinase (55-170) U/L Troponin I (0.000-0.034) ng/mL Total Protein 5.2 L (6.3-8.2) g/dL Albumin 3.0 L (3.5-5.0) g/dL 08/26/24 08/26/24 Range/Units 07:52 07:52 WBC (4.50-10.00) 10*3/uL RBC (4.40-5.60) 10*6/uL Hgb (13.0-17.0) g/dL Hct (39.6-50.0) % MPV (9.5-12.2) fL Neutrophils # (1.80-7.70) 10*3/uL Monocytes # (0.20-1.00) 10*3/uL Eosinophils # (0.04-0.35) 10*3/uL Sodium (137-145) mmol/L Chloride (98-107) mmol/L Carbon Dioxide (22-30) mmol/L BUN (9-20) mg/dL Creatinine (0.66-1.25) mg/dL Calcium (8.4-10.2) mg/dL AST (17-59) U/L ALT (4-49) U/L Creatine Kinase 06907 H* (55-170) U/L Troponin I 0.074 H* (0.000-0.034) ng/mL Total Protein (6.3-8.2) g/dL Albumin (3.5-5.0) g/dL Microbiology - Last 24 Hours (Table) 08/24/24 22:49 Blood Culture - Preliminary Blood
[2024-08-26] MEDS: ACETAMINOPHEN TAB 325 MG TAB PO PRN (15:03)
--- NOTE | 2024-08-26 16:04 | P.PN ---
Subjective Patient is seen for follow-up for acute kidney injury. Acute complaints today. Overall feeling better. Renal function has worsened with serum creatinine increased to 4.9 mg/dL No urine retention [place]aintained [place] [address] Objective - Vital Signs Vital signs: Vital Signs Temp 98.2 F 08/26/24 08:06 Pulse 55 L 08/26/24 15:09 Resp 15 08/26/24 15:09 BP 152/74 08/26/24 15:09 Pulse Ox 97 08/26/24 15:09 FiO2 Intake & Output 08/25/24 08/26/24 08/26/24 18:59 06:59 18:59 Intake Total 580 Output Total 1000 Balance -420 Weight 86.183 kg 81.6 kg Intake: Oral 580 Output: Urine 1000 Other: Voiding Method Toilet Toilet Urinal Urinal # Voids 2 1 # Bowel Movements 1 - Exam Patient is awake, comfortable, no acute distress Alert oriented x 3 Examination of the heart S1 and S2 Examination of the lungs bilateral breath sounds are heard Abdomen is soft nontender Examination of lower extremities showed no evidence of edema DIETARY AIDE exam grossly intact - Labs CBC & Chem 7: 08/26/24 06:36 08/26/24 06:36 Labs: Abnormal Lab Results - Last 24 Hours (Table) 08/26/24 08/26/24 08/26/24 Range/Units 06:36 06:36 07:52 WBC 13.45 H (4.50-10.00) 10*3/uL RBC 4.07 L (4.40-5.60) 10*6/uL Hgb 12.6 L (13.0-17.0) g/dL Hct 36.5 L (39.6-50.0) % MPV 9.2 L (9.5-12.2) fL Neutrophils # 10.85 H (1.80-7.70) 10*3/uL Monocytes # 1.05 H (0.20-1.00) 10*3/uL Eosinophils # 0.03 L (0.04-0.35) 10*3/uL Sodium 136 L (137-145) mmol/L Chloride 108 H (98-107) mmol/L Carbon Dioxide 19 L (22-30) mmol/L BUN 50 H (9-20) mg/dL Creatinine 4.94 H (0.66-1.25) mg/dL Calcium 8.1 L (8.4-10.2) mg/dL AST 181 H (17-59) U/L ALT 74 H (4-49) U/L Creatine Kinase (55-170) U/L Troponin I 0.074 H* (0.000-0.034) ng/mL Total Protein 5.2 L (6.3-8.2) g/dL Albumin 3.0 L (3.5-5.0) g/dL 08/26/24 Range/Units 07:52 WBC (4.50-10.00) 10*3/uL RBC (4.40-5.60) 10*6/uL Hgb (13.0-17.0) g/dL Hct (39.6-50.0) % MPV (9.5-12.2) fL Neutrophils # (1.80-7.70) 10*3/uL Monocytes # (0.20-1.00) 10*3/uL Eosinophils # (0.04-0.35) 10*3/uL Sodium (137-145) mmol/L Chloride (98-107) mmol/L Carbon Dioxide (22-30) mmol/L BUN (9-20) mg/dL Creatinine (0.66-1.25) mg/dL Calcium (8.4-10.2) mg/dL AST (17-59) U/L ALT (4-49) U/L Creatine Kinase 87209 H* (55-170) U/L Troponin I (0.000-0.034) ng/mL Total Protein (6.3-8.2) g/dL Albumin (3.5-5.0) g/dL Microbiology - Last 24 Hours (Table) 08/24/24 22:49 Blood Culture - Preliminary Blood Assessment and Plan Assessment: 1. Acute kidney injury secondary to rhabdomyolysis [place] [address], [place] [address]. Creatinine on admission 3.19 and increased to 4.9 today.. UA with 2+ protein, large blood, and hyaline casts. 2. Altered mentation. Drug screen positive for opiates, methadone, benzodiazepines [not prescribed], and marijuana. 3. Anion gap metabolic acidosis secondary to acute kidney injury currently on bicarb drip. 4. Rhabdomyolysis maintained on IV fluids Plan: Check ultrasound of the kidneys Continue with bicarb drip. Increase rate to 150 cc an hour Repeat labs in a.m. Continue to avoid nephrotoxic agents COLBY La
--- NOTE | 2024-08-26 16:11 | CDI ---
Documentation Clarification Form Date: 08/26/2024 03:15:52 PM From: Suzi Chavez RN, CCDS Phone: [phone] Admit Date: 08/25/2024 12:22:00 AM Patient Name: Josemanuel Vazquez Visit Number: [id number] Discharge Date: ATTENTION: The Clinical Documentation Specialists (CDI) and [facility] Coding Staff appreciate your assistance in clarifying documentation. Please respond to the clarification below the line at the bottom and electronically sign. The CDI & [facility] Coding staff will review the response and follow-up if needed. Please note: Queries are made part of the Legal Health Record. If you have any questions, please contact the author of this message via ITS. Doctor. Jadon Lynnette Rhabdomyolysis is documented in the Internal medicine H/P and subsequent progress notes. Additional clarification regarding the type of rhabdomyolysis is requested. History/Risk Factors: Poly substance abuse, Clinical Indicators: 58-year-old male present with altered mental status. Reported that patient was working outside for last couple of days and thought to have fallen at home. Patient reports he has no memory of the last 2 days 08/25 VS (02:00) 128/79 81 18 97% RA Labs: 08/25 WBC 27.76, PLT 285, Neutrophil 24.95, PT 10.7, INR 1, Bicarb 16 , BUN 35, Cr 3.19 Creatine kinase 24,102, Troponin 0.163 08/25 UA: significant for 2+ protein, 1+ glucose, large amount of blood, 10 WBC, few calcium oxalate crystal, 15 hyaline casts, negative urine leukocyte esterase. 08/25 Urine Drug Screen: Opiate -Detected, Methadone -Detected, Benzodiazepines- Detected, Marijuana -Detected Treatment: .9NS @ 130 ML/HR 08/24-08/26 Monitor CK, Labs 08/26, 08/27 D5/H20 NaBicarb 150 ml 1,150 MLS @ 150MLS/HR08/26-08/26 Please clarify the type of rhabdomyolysis, if known: [ ] Traumatic rhabdomyolysis due to fall [x ] Traumatic rhabdomyolysis due to prolonged immobility [ ] Non traumatic rhabdomyolysis due to medication (please specify) [ ] Other, please specify [ ] Unable to Determine (Template Last Revised: April 2020) MTDD
--- NOTE | 2024-08-26 16:52 | CDI ---
Documentation Clarification Form Date: 08/26/2024 04:15:00 PM From: Suzi Chavez RN, CCDS Phone: [phone] Admit Date: 08/25/2024 12:22:00 AM Patient Name: Josemanuel Vazquez Visit Number: [id number] Discharge Date: ATTENTION: The Clinical Documentation Specialists (CDI) and [facility] Coding Staff appreciate your assistance in clarifying documentation. Please respond to the clarification below the line at the bottom and electronically sign. The CDI & [facility] Coding staff will review the response and follow-up if needed. Please note: Queries are made part of the Legal Health Record. If you have any questions, please contact the author of this message via ITS. Doctor. Jadon Church Your patient has the documented symptom of Altered Mental Status Internal medicine H/P and subsequent progress notes.. Additional clarification regarding the etiology/cause of this symptom is requested. History/Risk Factors: Substance abuse, Clinical Indicators: 58-year-old male present with altered mental status. Reported that patient was working outside for last couple of days and thought to have fallen at home. Patient reports he has no memory of the last 2 days. In ER he was A/O X1. 08/25 VS (02:00) 128/79 81 18 97% RA Labs: 08/25 WBC 27.76, PLT 285, Neutrophil 24.95, PT 10.7, INR 1, Bicarb 16 , BUN 35, Cr 3.19 Creatine kinase 24,102, Troponin 0.163 08/25 Urine Drug Screen: Opiate -Detected, Methadone -Detected, Benzodiazepines- Detected, Marijuana -Detected 08/24 CT Brain: No acute intracranial hemorrhage, midline shift, or mass effect 08/24 ED Note: Clinical Impression: Acute metabolic encephalopathy Treatment: .9NS @ 130 ML/HR 08/24-08/26 Monitor CK, Labs 08/26, 08/27 D5/H20 NaBicarb 150 ml 1,150 MLS @ 150MLS/HR08/26-08/26 Neuro assessment/physical assessment q 6 Hrs. (per protocol) Please clarify the etiology of the symptom of Altered Mental Status: [ ] Acute Metabolic Encephalopathy due to [insert cause of encephalopathy if known] [ x] Acute Toxic Encephalopathy due to Drugs [ ] Other condition (please specify) [ ] Unable to determine (Template Last Revised: March 2020) MTDD
[2024-08-27 07:49] LABS: Basophils # (A) 0.06 10*3/uL (0.00-0.10); Basophils % (A) 0.5 %; Eosinophils # (A) 0.07 10*3/uL (0.04-0.35); Eosinophils % (A) 0.6 %; HCT 38.7 % (39.6-50.0); HGB 13.7 g/dL (13.0-17.0); Lymphocytes # (A) 1.33 10*3/uL (0.90-5.00); Lymphocytes % (A) 12.1 %; MCH 31.4 pg (27.0-32.0); MCHC 35.4 g/dL (32.0-37.0); MCV 88.8 fL (80.0-97.0); Monocytes # (A) 0.87 10*3/uL (0.20-1.00); Monocytes % (A) 7.9 %; Neutrophils # (A) 8.68 10*3/uL (1.80-7.70); Neutrophils % (A) 78.7 %; Platelet Count 207 10*3/uL (140-440); RBC 4.36 10*6/uL (4.40-5.60); RDW 12.6 % (11.5-14.5); WBC 11.03 10*3/uL (4.50-10.00)
[2024-08-27 08:14] LABS: ALT 96 U/L (4-49); AST 215 U/L (17-59); African American GFR (CKD) 14 (>60 ml/min/1.73 sqM); Albumin 3.5 g/dL (3.5-5.0); Alkaline Phosphatase 78 U/L (38-126); Anion Gap 7 mmol/L; Blood Urea Nitrogen 49 mg/dL (9-20); Calcium 8.4 mg/dL (8.4-10.2); Carbon Dioxide 31 mmol/L (22-30); Chloride 103 mmol/L (98-107); Glucose 112 mg/dL (74-99); Non-African American GFR(CKD) 12 (>60 ml/min/1.73 sqM); Potassium 3.8 mmol/L (3.5-5.1); Sodium 141 mmol/L (137-145); Total Protein 5.5 g/dL (6.3-8.2)
[2024-08-27 09:10] LABS: Creatine Kinase 21491 U/L (55-170)
[2024-08-27] MEDS: LACTATED RINGERS 1,000 ML IV SCH (11:38)
--- NOTE | 2024-08-27 12:04 | P.PN ---
Subjective Progress Note Date: 08/27/24 Patient is seen for follow-up for acute kidney injury. Feeling better no new complaints. Patient is awake, comfortable, no acute distress Alert oriented x 3 Examination of the heart S1 and S2 Examination of the lungs bilateral breath sounds are heard Abdomen is soft nontender Examination of lower extremities showed no evidence of edema Objective - Vital Signs Vital signs: Vital Signs Temp 98.2 F 08/27/24 07:22 Pulse 62 08/27/24 07:23 Resp 16 08/27/24 07:23 BP 161/84 08/27/24 07:22 Pulse Ox 94 L 08/27/24 07:22 FiO2 Intake & Output 08/26/24 08/27/24 08/27/24 18:59 06:59 18:59 Intake Total 820 240 Output Total 1275 600 875 Balance -455 600 -635 Weight 81.6 kg Intake: Oral 820 240 Output: Urine 1275 600 875 Other: Voiding Method Toilet Toilet Toilet Urinal Urinal Urinal # Voids 1 # Bowel Movements 1 - Labs CBC & Chem 7: 08/27/24 07:18 08/27/24 07:18 Labs: Abnormal Lab Results - Last 24 Hours (Table) 08/26/24 08/27/24 08/27/24 Range/Units 07:52 07:18 07:18 WBC 11.03 H (4.50-10.00) 10*3/uL RBC 4.36 L (4.40-5.60) 10*6/uL Hct 38.7 L (39.6-50.0) % MPV 9.2 L (9.5-12.2) fL Neutrophils # 8.68 H (1.80-7.70) 10*3/uL Carbon Dioxide 31 H (22-30) mmol/L BUN 49 H (9-20) mg/dL Creatinine 4.98 H (0.66-1.25) mg/dL Glucose 112 H (74-99) mg/dL AST 215 H (17-59) U/L ALT 96 H (4-49) U/L Creatine Kinase 16857 H* 96721 H* (55-170) U/L Total Protein 5.5 L (6.3-8.2) g/dL Microbiology - Last 24 Hours (Table) 08/24/24 22:49 Blood Culture - Preliminary Blood Assessment and Plan Assessment: 1. Acute kidney injury secondary to rhabdomyolysis [place] [address], [place] [address]. Creatinine on admission 3.19 and stable at 4.9 today.. UA with 2+ protein, large blood, and hyaline casts. Renal US unremarkable 2. Altered mentation. Drug screen positive for opiates, methadone, benzodiazepines [not prescribed], and marijuana. 3. Anion gap metabolic acidosis secondary to acute kidney injury currently on bicarb drip. 4. Rhabdomyolysis maintained on IV fluids Plan: CK improving, renal function stable with good urine output Discontinue bicarb drip. Start LR at 130cc/hr Repeat labs in a.m. Continue to avoid nephrotoxic agents
--- NOTE | 2024-08-27 13:31 | P.PN ---
Subjective History of present illness; 58-year-old male with history of substance abuse currently on methadone presents with altered mental status. Patient is a poor historian, most of history obtained from ER notes and ER nurse. Reported that patient was working outside for the last couple of days and thought to have fallen at home, when he was found by EMS there was a shelf that was broken next to him. Patient reports he has no memory of the last 2 days, only remembers working outside a few days ago but outside of that has very little memory of any thing else. Subjective: 08/26/24: Patient seen at bedside. No significant overnight events. Patient is aware of his name date of and location, still believes the year is 2005. Otherwise no other complaints at this time. States he is feeling better than yesterday. 08/27/2024: Patient seen at bedside, no significant overnight events. Patient's mentation has returned to his baseline, is able to state his name, date of , location and the correct year. States he is feeling well no current complaints or concerns. Pertinent positives and negatives discussed above, a complete review of systems was preformed and all the other sytems were negative. Vitals Signs Reveiwed. General: non toxic, no distress, appears at stated age, normal weight Derm: no unusual rashes/lesions, warm Head: atraumatic, normocephalic, symmetric Eyes: EOMI, no lid lag, anicteric sclera, pupils equal round reactive to light ENT: Nose and ears atraumatic Neck: No cervical lymphadenopathy, trachea midline, supple Mouth: no lip lesion, mucus membranes moist Cardiovascular: S1S2 reg, no murmur, positive dorsalis pedis pulse bilateral, no edema Lungs: Decreased air entry bilaterally, no rhonchi, no rales, no accessory muscle use Abdominal: soft, nontender to palpation, no guarding Ext: muscle strength 5 out of 5 in all 4 extremities grossly, no gross muscle atrophy, no contractures, Neuro: CN II-XI grossly intact, no gross focal neuro deficits Psych: Alert and oriented x 4, no deficits Data Reveiwed Today: Patient Labs: WBC 11.03, hemoglobin 13.7, platelets 207, neutrophils 8.68, sodium 141, potassium 3.8, bicarb 31, BUN 49, creatinine 4.98, glucose 112, ALT 215, AST 96, CK20 1491. Imaging: No new imaging Assessment and Plan #Rhabdomyolysis status post trauma/fall #ZAK likely secondary to rhabdo and dehydration #AMS likely secondary to electrolyte derangement secondary to ZAK - Patient is back to baseline mentation - CK continues to trend down, creatinine has stabilized 4.98 today -Urine output has increased since yesterday (08/26) - Strict I's and O's - Abdomen/bladder ultrasound showed no evidence for hydronephrosis and bladder scan showed no evidence of retention - Continue NS at 130 cc/h - Nephrology consulted, appreciate further recommendations - Avoid nephrotoxic agents - Monitor BMP -Patient's mentation slightly better, still believes the year is 2005 which is the only abnormality in terms of mentation #Elevated troponin: - Likely secondary to ZAK - Troponin down trended - Continue to monitor #Leukocytosis: Potentially reactive - White count continues to normalize - Blood cultures negative after 48 hours - Given 1 dose of Rocephin and Zithromax in the ER - No fevers since admission - No plans for continued antibiotics, will continue to monitor F: NS 130 cc/h E: None N: Renal diet DVT ppx: Heparin 5000 SQ 3 times daily GI ppx: Calcium carbonate CODE STATUS: Full code Dispo: Pending medical course Moni Palacio MD PGY-2 FM Dictation was produced using [employer] dictation software. please excuse any grammatical, word or spelling errors. Dr. Lynnette MD I have performed a history and physical examination and medical decision making of this patient, discussed the same with the dictator, and agree with the dictators assessment and plan as written, documented as a scribe. Based on total visit time, I have performed more than 50% of this visit. Objective - Vital Signs Vital signs: Vital Signs Temp 98.2 F 08/27/24 07:22 Pulse 62 08/27/24 07:23 Resp 16 08/27/24 07:23 BP 161/84 08/27/24 07:22 Pulse Ox 94 L 08/27/24 07:22 FiO2 Intake & Output 08/26/24 08/27/24 08/27/24 18:59 06:59 18:59 Intake Total 820 240 Output Total 1275 600 875 Balance -231 -647 -901 Weight 81.6 kg Intake: Oral 820 240 Output: Urine 1275 600 875 Other: Voiding Method Toilet Toilet Toilet Urinal Urinal Urinal # Voids 1 # Bowel Movements 1 - Labs CBC & Chem 7: 08/27/24 07:18 08/27/24 07:18 Labs: Abnormal Lab Results - Last 24 Hours (Table) 08/26/24 08/27/24 08/27/24 Range/Units 07:52 07:18 07:18 WBC 11.03 H (4.50-10.00) 10*3/uL RBC 4.36 L (4.40-5.60) 10*6/uL Hct 38.7 L (39.6-50.0) % MPV 9.2 L (9.5-12.2) fL Neutrophils # 8.68 H (1.80-7.70) 10*3/uL Carbon Dioxide 31 H (22-30) mmol/L BUN 49 H (9-20) mg/dL Creatinine 4.98 H (0.66-1.25) mg/dL Glucose 112 H (74-99) mg/dL AST 215 H (17-59) U/L ALT 96 H (4-49) U/L Creatine Kinase 32142 H* 76812 H* (55-170) U/L Total Protein 5.5 L (6.3-8.2) g/dL Microbiology - Last 24 Hours (Table) 08/24/24 22:49 Blood Culture - Preliminary Blood
[2024-08-28 07:36] LABS: Basophils # (A) 0.06 10*3/uL (0.00-0.10); Basophils % (A) 0.6 %; Eosinophils # (A) 0.20 10*3/uL (0.04-0.35); Eosinophils % (A) 1.9 %; HCT 38.5 % (39.6-50.0); HGB 13.3 g/dL (13.0-17.0); Lymphocytes # (A) 1.53 10*3/uL (0.90-5.00); Lymphocytes % (A) 14.8 %; MCH 30.9 pg (27.0-32.0); MCHC 34.5 g/dL (32.0-37.0); MCV 89.5 fL (80.0-97.0); Monocytes # (A) 0.78 10*3/uL (0.20-1.00); Monocytes % (A) 7.5 %; Neutrophils # (A) 7.76 10*3/uL (1.80-7.70); Neutrophils % (A) 75.0 %; Platelet Count 209 10*3/uL (140-440); RBC 4.30 10*6/uL (4.40-5.60); RDW 12.7 % (11.5-14.5); WBC 10.35 10*3/uL (4.50-10.00)
[2024-08-28 08:03] LABS: ALT 97 U/L (4-49); AST 165 U/L (17-59); African American GFR (CKD) 18 (>60 ml/min/1.73 sqM); Albumin 3.3 g/dL (3.5-5.0); Alkaline Phosphatase 76 U/L (38-126); Anion Gap 9 mmol/L; Blood Urea Nitrogen 41 mg/dL (9-20); Calcium 8.5 mg/dL (8.4-10.2); Carbon Dioxide 27 mmol/L (22-30); Chloride 105 mmol/L (98-107); Glucose 83 mg/dL (74-99); Non-African American GFR(CKD) 15 (>60 ml/min/1.73 sqM); Potassium 3.9 mmol/L (3.5-5.1); Sodium 141 mmol/L (137-145); Total Protein 5.5 g/dL (6.3-8.2)
[2024-08-28 09:17] LABS: Creatine Kinase 13541 U/L (55-170)
--- NOTE | 2024-08-28 12:26 | P.PN ---
Subjective Progress Note Date: 08/28/24 Patient is seen for follow-up for acute kidney injury. Feeling much better today. Appetite remains good with good urine output. Patient is awake, comfortable, no acute distress Alert oriented x 3 Examination of the heart S1 and S2 Examination of the lungs bilateral breath sounds are heard Abdomen is soft nontender Examination of lower extremities showed no evidence of edema Objective - Vital Signs Vital signs: Vital Signs Temp 97.5 F L 08/28/24 04:00 Pulse 56 L 08/28/24 08:25 Resp 18 08/28/24 08:25 BP 164/88 08/28/24 08:25 Pulse Ox 95 08/28/24 08:25 FiO2 Intake & Output 08/27/24 08/28/24 08/28/24 18:59 06:59 18:59 Intake Total 720 240 Output Total 2200 2000 800 Balance -1480 -1999 -560 Weight 82.4 kg Intake: Oral 720 240 Output: Urine 2200 2000 800 Other: Voiding Method Toilet Toilet Urinal Urinal - Labs CBC & Chem 7: 08/28/24 05:58 08/28/24 05:58 Labs: Abnormal Lab Results - Last 24 Hours (Table) 08/28/24 08/28/24 Range/Units 05:58 05:58 WBC 10.35 H (4.50-10.00) 10*3/uL RBC 4.30 L (4.40-5.60) 10*6/uL Hct 38.5 L (39.6-50.0) % Neutrophils # 7.76 H (1.80-7.70) 10*3/uL BUN 41 H (9-20) mg/dL Creatinine 4.09 H (0.66-1.25) mg/dL AST 165 H (17-59) U/L ALT 97 H (4-49) U/L Creatine Kinase 48921 H* (55-170) U/L Total Protein 5.5 L (6.3-8.2) g/dL Albumin 3.3 L (3.5-5.0) g/dL Microbiology - Last 24 Hours (Table) 08/24/24 22:49 Blood Culture - Preliminary Blood Assessment and Plan Assessment: 1. Acute kidney injury secondary to rhabdomyolysis and volume depletion. [place] admission [address], today [address]. Creatinine on admission 3.19, peaked 4.9 now 4.1 today.. UA with 2+ protein, large blood, and hyaline casts. Renal US unremarkable 2. Altered mentation. Drug screen positive for opiates, methadone, benzodiazep silvana [not prescribed], and marijuana. 3. Anion gap metabolic acidosis secondary to acute kidney injury currently on bicarb drip. 4. Rhabdomyolysis maintained on IV fluids Plan: CK improving, renal function stable with good urine output Continue LR at 130cc/hr another 24-48 hours Repeat labs in a.m. Continue to avoid nephrotoxic agents
--- NOTE | 2024-08-28 13:18 | P.PN ---
Subjective History of present illness; 58-year-old male with history of substance abuse currently on methadone presents with altered mental status. Patient is a poor historian, most of history obtained from ER notes and ER nurse. Reported that patient was working outside for the last couple of days and thought to have fallen at home, when he was found by EMS there was a shelf that was broken next to him. Patient reports he has no memory of the last 2 days, only remembers working outside a few days ago but outside of that has very little memory of any thing else. Subjective: 08/26/24: Patient seen at bedside. No significant overnight events. Patient is aware of his name date of and location, still believes the year is 2005. Otherwise no other complaints at this time. States he is feeling better than yesterday. 08/27/2024: Patient seen at bedside, no significant overnight events. Patient's mentation has returned to his baseline, is able to state his name, date of , location and the correct year. States he is feeling well no current complaints or concerns. 08/28/2024: Patient seen at bedside. No significant overnight events. Patient alert and oriented x 3. Reports feeling well and an increase in his urine output. Currently has no acute concerns. [place] 4.09, [place] [address]. Pertinent positives and negatives discussed above, a complete review of systems was preformed and all the other systems were negative. Vitals Signs Reviewed. General: non toxic, no distress, appears at stated age, normal weight Derm: no unusual rashes/lesions, warm Head: atraumatic, normocephalic, symmetric Eyes: EOMI, no lid lag, anicteric sclera, pupils equal round reactive to light ENT: Nose and ears atraumatic Neck: No cervical lymphadenopathy, trachea midline, supple Mouth: no lip lesion, mucus membranes moist Cardiovascular: S1S2 reg, no murmur, positive dorsalis pedis pulse bilateral, no edema Lungs: Decreased air entry bilaterally, no rhonchi, no rales, no accessory muscle use Abdominal: soft, nontender to palpation, no guarding Ext: muscle strength 5 out of 5 in all 4 extremities grossly, no gross muscle atrophy, no contractures, Neuro: CN II-XI grossly intact, no gross focal neuro deficits Psych: Alert and oriented x 4, no deficits Data Reviewed Today: 08/28/2024 Patient Labs: WBC 10.35, sodium 141, potassium 3.9, BUN 41, creatinine 4.09, AST 165, ALT 97, ALP 76, creatinine kinase 130 541. Imaging: No new imaging Assessment and Plan #Rhabdomyolysis status post trauma/fall #ZAK likely secondary to rhabdo and dehydration #AMS likely secondary to electrolyte derangement secondary to ZAK - Patient is back to baseline mentation - CK continues to trend down, creatinine has stabilized 4.98 today -Urine output has increased since yesterday (08/26) - Strict I's and O's - Abdomen/bladder ultrasound showed no evidence for hydronephrosis and bladder scan showed no evidence of retention - Continue NS at 130 cc/h - Nephrology consulted, appreciate further recommendations - Avoid nephrotoxic agents - Monitor BMP #Elevated troponin: - Likely secondary to ZAK - Troponin down trended - Continue to monitor #Leukocytosis: Potentially reactive - White count continues to normalize - Blood cultures negative after 48 hours - Given 1 dose of Rocephin and Zithromax in the ER - No fevers since admission - No plans for continued antibiotics, will continue to monitor F: NS 130 cc/h E: None N: Renal diet DVT ppx: Heparin 5000 SQ 3 times daily GI ppx: Calcium carbonate CODE STATUS: Full code Dispo: Pending medical course Dictation was produced using [employer] dictation software. please excuse any gra mmatical, word or spelling errors. Objective - Vital Signs Vital signs: Vital Signs Temp 97.5 F L 08/28/24 04:00 Pulse 55 L 08/28/24 12:40 Resp 18 08/28/24 12:40 BP 175/79 08/28/24 10:53 Pulse Ox 97 08/28/24 10:53 FiO2 Intake & Output 08/27/24 08/28/24 08/28/24 18:59 06:59 18:59 Intake Total 720 240 Output Total 2199 1999 1599 Balance -1480 -2000 -1360 Weight 82.4 kg Intake: Oral 720 240 Output: Urine 2199 1999 1599 Other: Voiding Method Toilet Toilet Toilet Urinal Urinal Urinal - Labs CBC & Chem 7: 08/28/24 05:58 08/28/24 05:58 Labs: Abnormal Lab Results - Last 24 Hours (Table) 08/28/24 08/28/24 Range/Units 05:58 05:58 WBC 10.35 H (4.50-10.00) 10*3/uL RBC 4.30 L (4.40-5.60) 10*6/uL Hct 38.5 L (39.6-50.0) % Neutrophils # 7.76 H (1.80-7.70) 10*3/uL BUN 41 H (9-20) mg/dL Creatinine 4.09 H (0.66-1.25) mg/dL AST 165 H (17-59) U/L ALT 97 H (4-49) U/L Creatine Kinase 66083 H* (55-170) U/L Total Protein 5.5 L (6.3-8.2) g/dL Albumin 3.3 L (3.5-5.0) g/dL Microbiology - Last 24 Hours (Table) 08/24/24 22:49 Blood Culture - Preliminary Blood
[2024-08-29 05:28] LABS: ALT 93 U/L (4-49); AST 115 U/L (17-59); African American GFR (CKD) 21 (>60 ml/min/1.73 sqM); Albumin 3.1 g/dL (3.5-5.0); Alkaline Phosphatase 71 U/L (38-126); Anion Gap 7 mmol/L; Blood Urea Nitrogen 36 mg/dL (9-20); Calcium 9.1 mg/dL (8.4-10.2); Carbon Dioxide 29 mmol/L (22-30); Chloride 104 mmol/L (98-107); Glucose 89 mg/dL (74-99); Non-African American GFR(CKD) 18 (>60 ml/min/1.73 sqM); Potassium 4.1 mmol/L (3.5-5.1); Sodium 140 mmol/L (137-145); Total Protein 5.4 g/dL (6.3-8.2)
[2024-08-29 06:00] LABS: Basophils # (A) 0.07 10*3/uL (0.00-0.10); Basophils % (A) 0.6 %; Eosinophils # (A) 0.48 10*3/uL (0.04-0.35); Eosinophils % (A) 4.4 %; HCT 40.1 % (39.6-50.0); HGB 13.7 g/dL (13.0-17.0); Lymphocytes # (A) 1.77 10*3/uL (0.90-5.00); Lymphocytes % (A) 16.0 %; MCH 30.8 pg (27.0-32.0); MCHC 34.2 g/dL (32.0-37.0); MCV 90.1 fL (80.0-97.0); Monocytes # (A) 0.84 10*3/uL (0.20-1.00); Monocytes % (A) 7.6 %; Neutrophils # (A) 7.84 10*3/uL (1.80-7.70); Neutrophils % (A) 71.1 %; Platelet Count 166 10*3/uL (140-440); RBC 4.45 10*6/uL (4.40-5.60); RDW 12.8 % (11.5-14.5); WBC 11.03 10*3/uL (4.50-10.00)
[2024-08-29] MEDS: amLODIPine 5 MG TAB PO SCH (08:16)
--- NOTE | 2024-08-29 13:10 | P.PN ---
Subjective Progress Note Date: 08/29/24 Principal diagnosis: Mr. Bryant is a 58 year-old male consulted for ZAK 2ry to Rhabdomyolysis. last week. He has a past medical history of methadone dependence secondary to chronic pain. Today he complains of a headache, his blood pr was 189/88 mmhg this morning, Norvasc 5 mg was added. repeat Blood pr was 159/90 mmhg. He denies abdominal pain, chest pain, shortness of breath, muscle pain or fatigue. He is urinating, drinking eating, reports soft bowel movements, last one was this morning. On admission his creatinine was 3.19. Previous Creatinine 0.9 on 04/17/22, Today it is 3.55. Creatine kinase was 24,102 on admission. trending down, CK today is 6014. No evidence of Hydronephrosis (08/26). Patient voided this morning. Objective - Vital Signs Vital signs: Vital Signs Temp 97.5 F L 08/29/24 11:37 Pulse 63 08/29/24 11:37 Resp 16 08/29/24 11:37 BP 155/90 08/29/24 11:37 Pulse Ox 97 08/29/24 11:37 FiO2 Intake & Output 08/28/24 08/29/24 08/29/24 18:59 06:59 18:59 Intake Total 480 240 Output Total 2725 1200 1200 Balance -2443 -960 -1200 Weight 82 kg Intake: Oral 480 240 Output: Urine 2725 1200 1200 Other: Voiding Method Toilet Toilet Urinal Urinal - Exam Blood Pr. was elevated 189/88 mmhg, repeat Blood pr. is 159/90 mmhg. General: No acute distress. HEENT: Head exam is unremarkable. LUNGS: No audible rhonchi or wheezes. HEART: Normal S1 and S2 heart sounds ABDOMEN: Nontender. EXTREMITITES: no edema. - Labs CBC & Chem 7: 08/29/24 03:54 08/29/24 03:54 Labs: Abnormal Lab Results - Last 24 Hours (Table) 08/29/24 08/29/24 08/29/24 Range/Units 03:54 03:54 03:54 WBC 11.03 H (4.50-10.00) 10*3/uL Neutrophils # 7.84 H (1.80-7.70) 10*3/uL Eosinophils # 0.48 H (0.04-0.35) 10*3/uL BUN 36 H (9-20) mg/dL Creatinine 3.55 H (0.66-1.25) mg/dL AST 115 H (17-59) U/L ALT 93 H (4-49) U/L Creatine Kinase 6014 H* (55-170) U/L Total Protein 5.4 L (6.3-8.2) g/dL Albumin 3.1 L (3.5-5.0) g/dL Assessment and Plan Plan: 1. ZAK secondary to rhabdomyolysis: Creatinine on admission 3.19, Peaked at 4.98, today it is 3.55. No hydronephrosis on US. Patient is on 130ml/hr Ringer lactate. 2. Rhabdomyolysis 2/2 a fall: [place] [address], trending down with today's CK of 6014. today patient reports clear to yellow urine, denies muscle pain or fatigue. 3. ELevated Blood Pressure: patient Blood pr was 189/88 mmhg, Cardiology added Amlpdipine 5 mg. Plan: Continue IV fluids, cut from 130 to 100 ml/hr. Avoid nephrotoxins Monitor I's and O's Repeat CK, BMP in AM Monitor Blood Pressure. Maeve Salazar MD Internal medicine, PGY 1 Nephrology service I have seen and examined the patient with resident and agree with A&P as written. [facility] - improving.
--- NOTE | 2024-08-29 14:39 | P.PN ---
Subjective History of present illness; 58-year-old male with history of substance abuse currently on methadone presents with altered mental status. Patient is a poor historian, most of history obtained from ER notes and ER nurse. Reported that patient was working outside for the last couple of days and thought to have fallen at home, when he was found by EMS there was a shelf that was broken next to him. Patient reports he has no memory of the last 2 days, only remembers working outside a few days ago but outside of that has very little memory of any thing else. Subjective: 08/26/24: Patient seen at bedside. No significant overnight events. Patient is aware of his name date of and location, still believes the year is 2005. Otherwise no other complaints at this time. States he is feeling better than yesterday. 08/27/2024: Patient seen at bedside, no significant overnight events. Patient's mentation has returned to his baseline, is able to state his name, date of , location and the correct year. States he is feeling well no current complaints or concerns. 08/28/2024: Patient seen at bedside. No significant overnight events. Patient alert and oriented x 3. Reports feeling well and an increase in his urine output. Currently has no acute concerns. [place] 4.09, [place] [address]. 08/29/2024: Patient seen at bedside. No significant overnight events. Patient is alert and oriented x 3. Patient reports feeling well and mobilizing appropriately. Patient placed on amlodipine 5 mg as inpatient due to increase in blood pressure. Current creatinine 3.55, CK 6014. Pertinent positives and negatives discussed above, a complete review of systems was preformed and all the other systems were negative. Vitals Signs Reviewed. General: non toxic, no distress, appears at stated age, normal weight Derm: no unusual rashes/lesions, warm Head: atraumatic, normocephalic, symmetric Eyes: EOMI, no lid lag, anicteric sclera, pupils equal round reactive to light ENT: Nose and ears atraumatic Neck: No cervical lymphadenopathy, trachea midline, supple Mouth: no lip lesion, mucus membranes moist Cardiovascular: S1S2 reg, no murmur, positive dorsalis pedis pulse bilateral, no edema Lungs: Decreased air entry bilaterally, no rhonchi, no rales, no accessory muscle use Abdominal: soft, nontender to palpation, no guarding Ext: muscle strength 5 out of 5 in all 4 extremities grossly, no gross muscle atrophy, no contractures, Neuro: CN II-XI grossly intact, no gross focal neuro deficits Psych: Alert and oriented x 4, no deficits Data Reviewed Today: 08/29/2024 Patient Labs: WBC 11.03, hemoglobin 13.7, sodium 140, potassium 4.1, CK 6014, creatinine 3.55 Imaging: No new imaging Assessment and Plan #Rhabdomyolysis status post trauma/fall #ZAK likely secondary to rhabdo and dehydration #AMS likely secondary to electrolyte derangement secondary to ZAK - Patient is back to baseline mentation - CK continues to trend down, creatinine has stabilized 3.55 today - Strict I's and O's - Abdomen/bladder ultrasound showed no evidence for hydronephrosis and bladder scan showed no evidence of retention - Decrease NS 130 cc/h to NS 100/h as per nephrology - Nephrology consulted, appreciate further recommendations - Avoid nephrotoxic agents - Monitor BMP #Elevated troponin: - Likely secondary to ZAK - Troponin down trended - Continue to monitor #Hypertension - Start amlodipine 5 mg. #Leukocytosis: Potentially reactive - White count continues to normalize - Blood cultures negative after 48 hours - Given 1 dose of Rocephin and Zithromax in the ER - No fevers since admission - No plans for continued antibiotics, will continue to monitor F: NS 100 cc/h E: None N: Renal diet DVT ppx: Heparin 5000 SQ 3 times daily GI ppx: Calcium carbonate CODE STATUS: Full code Dispo: Pending medical course Dictation was produced using [employer] dictation software. please excuse any grammatical, word or spelling errors. Objective - Vital Signs Vital signs: Vital Signs Temp 97.5 F L 08/29/24 11:37 Pulse 63 08/29/24 11:37 Resp 16 08/29/24 11:37 BP 155/90 08/29/24 11:37 Pulse Ox 97 08/29/24 11:37 FiO2 Intake & Output 08/28/24 08/29/24 08/29/24 18:59 06:59 18:59 Intake Total 480 240 Output Total 2725 1200 1200 Balance -0182 -960 -1200 Weight 82 kg Intake: Oral 480 240 Output: Urine 2725 1200 1200 Other: Voiding Method Toilet Toilet Urinal Urinal - Labs CBC & Chem 7: 07/14/25 03:54 08/29/24 03:54 Labs: Abnormal Lab Results - Last 24 Hours (Table) 08/29/24 08/29/24 08/29/24 Range/Units 03:54 03:54 03:54 WBC 11.03 H (4.50-10.00) 10*3/uL Neutrophils # 7.84 H (1.80-7.70) 10*3/uL Eosinophils # 0.48 H (0.04-0.35) 10*3/uL BUN 36 H (9-20) mg/dL Creatinine 3.55 H (0.66-1.25) mg/dL AST 115 H (17-59) U/L ALT 93 H (4-49) U/L Creatine Kinase 6014 H* (55-170) U/L Total Protein 5.4 L (6.3-8.2) g/dL Albumin 3.1 L (3.5-5.0) g/dL
[2024-08-29] MEDS: LACTATED RINGERS 1,000 ML IV SCH (22:09)
[2024-08-30 05:05] VITALS: RESP 16
[2024-08-30 07:50] LABS: African American GFR (CKD) 28 (>60 ml/min/1.73 sqM); Anion Gap 7 mmol/L; Blood Urea Nitrogen 26 mg/dL (9-20); Calcium 9.2 mg/dL (8.4-10.2); Carbon Dioxide 30 mmol/L (22-30); Chloride 106 mmol/L (98-107); Glucose 87 mg/dL (74-99); Non-African American GFR(CKD) 24 (>60 ml/min/1.73 sqM); Potassium 4.3 mmol/L (3.5-5.1); Sodium 143 mmol/L (137-145)
[2024-08-30 07:55] LABS: Creatine Kinase 1438 U/L (55-170)
[2024-08-30] MEDS: amLODIPine 10 MG TAB PO SCH (08:31)
[2024-08-30 08:41] VITALS: TEMP 98
[2024-08-30 11:57] VITALS: BP 168/93; PULSE 75
--- NOTE | 2024-08-30 13:14 | P.DS ---
Providers Date of admission: 08/25/24 00:22 Attending physician: Marshall Meyer Consults: 08/25/24 00:22 Consult Physician Urgent Consulting Provider: Whitney Manjarrez Consult Reason/Comments: Rhabdomyolysis Do you want consulting provider notified?: Yes, Notify in am Primary care physician: Olga Wu Hospital Course: Discharge Diagnosis: Rhabdomyolysis post trauma/fall. Hospital Course: 58-year-old male with history of substance abuse currently on methadone presents with altered mental status. Patient is a poor historian, most of history obtained from ER notes and ER nurse. Reported that patient was working outside for the last couple of days and thought to have fallen at home, when he was found by EMS there was a shelf that was broken next to him. Patient reports he has no memory of the last 2 days, only remembers working outside a few days ago but outside of that has very little memory of anything else. In the ER lab work significant for creatinine kinase 24,102, creatinine 3.19, WBC 27.76, sodium 135, AST 188, ALT 56, troponin Head CT was also obtained ruling out acute fracture or subluxation of the cervical spine. ACDF at C4 C7 was appreciated. A chest x-ray performed did not report any consolidations or acute changes. An EKG obtained was normal and in sinus rhythm. Furthermore renal and bladder ultrasound was performed indicating no evidence of acute process. As a result nephrology consulted and patient placed on IV fluids and bicarbonate drip. All nephrotoxic drugs none. Patient admitted as inpatient for optimization of management of care. During the course of his hospital stay, the patient was followed up and seen by both nephrology and general medicine. His creatinine and creatinine kinase levels were routinely monitored. He was placed on fluid replenishment replenishment therapy, and his intake and output were monitored daily. The patient's creatinine and CK levels showed a downward trend during hospitalization. At the time of discharge, CK had decreased to 1438 and creatinine to 2.8. The patient is currently hemodynamically stable and producing urine appropriately. Of note the patient experienced multiple episodes of elevated blood pressure, thought likely secondary to fluid replenishment during the hospital stay, which was required to treat ZAK secondary to rhabdomyalisis. Patient was started on amlodipine 10 mg daily for outpatient blood pressure management. The patient's mentation at time of admission was A and O x2, however, at discharge the patient is alert and oriented to person place and time (A and O x3). He will follow-up with nephrology as an outpatient for continued monitoring of renal function. He is advised to monitor his blood pressure at home and to follow-up with his PCP in 1 week. Pt seen and examined at bedside: 08/30/2024 Vital signs reviewed and stable General: non toxic, no distress, appears at stated age, normal weight Derm: no unusual rashes/lesions, warm Head: atraumatic, normocephalic, symmetric Eyes: EOMI, no lid lag, anicteric sclera, pupils equal round reactive to light ENT: Nose and ears atraumatic Neck: No cervical lymphadenopathy, trachea midline, supple Mouth: no lip lesion, mucus membranes moist Cardiovascular: S1S2 reg, no murmur, positive dorsalis pedis pulse bilateral, no edema Lungs: Decreased air entry bilaterally, no rhonchi, no rales, no accessory muscle use Abdominal: soft, nontender to palpation, no guarding Ext: muscle strength 5 out of 5 in all 4 extremities grossly, no gross muscle atrophy, no contractures, Neuro: CN II-XI grossly intact, no gross focal neuro deficits Psych: Alert and oriented x 4, no deficits A total of greater than 30 minutes were spent preparing this complex discarge summary. Patient was discharged on 08/30/2024. Patient Condition at Discharge: Stable Plan - Discharge Summary New Discharge Prescriptions: New amLODIPine [Norvasc] 10 mg PO DAILY 30 Days #30 tab Continue Methadone [Dolophine] 10 mg PO Q4-6H Discharge Medication List Methadone [Dolophine] 10 mg PO Q4-6H 08/25/24 [History] amLODIPine [Norvasc] 10 mg PO DAILY 30 Days #30 tab 08/30/24 [Rx] Follow up Appointment(s)/Referral(s): Moni Palacio MD [RESIDENT] - 1 Week (unable to get through, please call and schedule an appointment) Olga Wu MD [Primary Care Provider] - 1-2 days (please call and schedule and appointment) Patient Instructions/Handouts: Rhabdomyolysis (DC) Discharge Disposition: HOME SELF-CARE
--- NOTE | 2024-08-30 13:44 | P.PN ---
Subjective Patient seen at Bedside today he has no acute complaints. He denies abdominal pain, chest pain, shortness of breath, muscle pain or fatigue. He is urinating, drinking eating. On admission his creatinine was 3.19. Previous Creatinine 0.9 on 04/17/22, Today it is 2.80. Creatine kinase was 24,102 on admission. trending down, CK today is 1438. BMP shows Na 143, K 4.3, CL 106. Objective - Vital Signs Vital signs: Vital Signs Temp 98.0 F 08/30/24 08:38 Pulse 63 08/30/24 08:38 Resp 16 08/30/24 08:38 BP 174/86 08/30/24 08:38 Pulse Ox 98 08/30/24 08:38 FiO2 Intake & Output 08/29/24 08/30/24 08/30/24 18:59 06:59 18:59 Intake Total 10 Output Total 3800 850 Balance -3800 -850 10 Weight 80.6 kg Intake: IV 10 Invasive Line 4 10 Output: Urine 3800 850 Other: Voiding Method Toilet Urinal - Exam Patient's have high blood pressure 174/86 mmhg. General: patient is no acute distress Lung: clear to ascultation bilaterally Heart: S1, S2 ascultated, no murmurs MSK: No LE edema. - Labs CBC & Chem 7: 08/29/24 03:54 08/30/24 05:40 Labs: Abnormal Lab Results - Last 24 Hours (Table) 08/30/24 Range/Units 05:40 BUN 26 H (9-20) mg/dL Creatinine 2.80 H (0.66-1.25) mg/dL Creatine Kinase 1438 H* (55-170) U/L Microbiology - Last 24 Hours (Table) 08/24/24 22:49 Blood Culture - Final Blood Assessment and Plan Plan: 1. ZAK secondary to rhabdomyolysis: Creatinine on admission 3.19, Peaked at 4.98, today it is 2.80. No hydronephrosis on US. Patient is on 100 ml/hr Ringer lactate. 2. Rhabdomyolysis 2/ a fall: [place] admission [address], trending down with today's CK of 1438 today. 3. Elevated Blood Pressure: On Amlodipine 10 mg. Plan: D/c fluids. Patient Kidney functions are improving, CK levels are going down patient is cleared for discharge. to follow up in outpatient clinic. Advised to avoid any strenuous exercise. Maeve Salazar MD Internal medicine, PGY 1 Nephrology service I have seen and examined the patient and agree with A&P as written. He wants to go home. No complaints today. F/u outpatient 1 week post d/c.
== END 2024-08-30 13:35 | disposition home or self-care (01) | DRG 564 ==
LOC: EC 21:40 → 3SCARD 08-25 00:22
PROVIDERS: ADMIT Hospitalist; ATTEND Hospitalist
DX: T79.6XXA Traumatic ischemia of muscle, initial encounter (principal); G92.8 Other toxic encephalopathy; N17.0 Acute kidney failure with tubular necrosis; F11.20 Opioid dependence, uncomplicated; I10 Essential (primary) hypertension; E87.20 Acidosis, unspecified; D72.829 Elevated white blood cell count, unspecified; W18.30XA Fall on same level, unspecified, initial encounter; E86.0 Dehydration; G89.29 Other chronic pain; R79.89 Other specified abnormal findings of blood chemistry; Z28.310 Unvaccinated for COVID-19; Z28.21 Immunization not carried out because of patient refusal; Z98.1 Arthrodesis status
CPT/HCPCS: 36415; 51798; 70450; 71045; 72125; 76770; 80048; 80053; 80143; 80179; 80306; 80320; 81001; 82140; 82550; 83605; 84484; 85025; 85610; 85730; 87040; 87205; 87636; 93005; 94760; 96361; 96365; 96366; 96368; 96375; 96376; 99291

== ENCOUNTER → 2024-09-05 | Outpatient (CLI) | payer MEDICARE ==
[2024-09-05 20:12] LABS: Anion Gap 12.10 mmol/L (4.00-12.00); BUN/Creat Ratio 15.31 Ratio (12.00-20.00); Blood Urea Nitrogen 24.5 mg/dL (9.0-27.0); Carbon Dioxide 25.9 mmol/L (21.6-31.8); Chloride 105 mmol/L (96-109); Cholesterol 202.00 mg/dL (0.00-200.00); Creatine Kinase 186 U/L (35-257); Glucose 94 mg/dL (70-110); HDL Cholesterol 36.90 mg/dL (40.00-60.00); LDL Cholesterol,Calculated 138.5 mg/dL (0.0-131.0); Potassium 4.5 mmol/L (3.5-5.5); Sodium 143 mmol/L (135-145); Triglycerides 133.00 mg/dL (0.00-149.00); VLDL Calculation 26.60 mg/dL (5.00-40.00)
[2024-09-05 20:13] LABS: ALT 42 U/L (10-49); AST 20 U/L (14-35); Albumin 4.4 g/dL (3.8-4.9); Albumin/Globulin Ratio 2.00 Ratio (1.60-3.17); Alkaline Phosphatase 98 U/L (41-126); Calcium 9.7 mg/dL (8.7-10.3); Globulin 2.2 g/dL (1.6-3.3); Total Protein 6.6 g/dL (6.2-8.2)
[2024-09-06 02:17] LABS: Basophils # (A) 0.10 X 10*3/uL (0.00-0.10); Basophils % (A) 1.1 %; Eosinophils # (A) 0.20 X 10*3/uL (0.04-0.35); Eosinophils % (A) 2.2 %; HCT 45.7 % (39.6-50.0); HGB 14.8 g/dL (13.0-17.0); Immature Grans, Automated 0.30 %; Lymphocytes # (A) 2.44 X 10*3/uL (0.90-5.00); Lymphocytes % (A) 26.8 %; MCH 30.3 pg (27.0-32.0); MCHC 32.4 g/dL (32.0-37.0); MCV 93.5 FL (80.0-97.0); Monocytes # (A) 0.72 X 10*3/uL (0.20-1.00); Monocytes % (A) 7.9 %; NRBC Per 100 WBC 0 X 10*3/uL (0.00-0.01); Neutrophils # (A) 5.62 X 10*3/uL (1.80-7.70); Neutrophils % (A) 61.7 %; Platelet Count 198 X 10*3/uL (140-440); RBC 4.89 X 10*6/uL (4.40-5.60); RDW 13.0 % (11.5-14.5); WBC 9.11 X 10*3/uL (4.50-10.00)
== END | disposition home or self-care (01) ==
LOC: LABWHC1 15:09
DX: Z00.00 Encounter for general adult medical examination without abnormal findings (principal); Z13.220 Encounter for screening for lipoid disorders; T79.6XXA Traumatic ischemia of muscle, initial encounter
CPT/HCPCS: 36415; 80053; 80061; 82550; 83036; 85025